=== PATIENT | male | born 1975 | race Caucasian/White ===

== ENCOUNTER 2017-10-30 18:57 | Emergency (ER) | payer OTHER, SELFPAY ==
[~2017-10-30] VITALS: Ht 175.3 cm; Wt 90.7 kg
[~2017-10-30 18:57] MED LIST: ALLO100 PO; CIPR500 PO; HYDACE5 PO; Norco 5-325 Ta1 EACH PO; RXHYDACE PO; Zofran Odt4 MG SL
[2017-10-30 19:30] LABS: Calcium, Ionized (POC) 1.19 mmol/L (1.10-1.46); Chloride (POC) 109 mmol/L (98-108); Creatinine (POC) 0.9 mg/dL (0.8-1.3); Glucose (ISTAT POC) 120 mg/dL (70-99); Potassium (POC) 3.4 mmol/L (3.5-5.5); Sodium (POC) 145 mmol/L (135-148); Total CO2 (POC) 23 mmol/L (21-32)
[2017-10-30 19:48] LABS: BASOPHILS ABSOLUTE AUTO 0.06 K/mm3 (0.00-0.23); BASOPHILS PERCENT AUTO 1 % (0-2); EOSINOPHILS ABSOLUTE AUTO 0.18 K/mm3 (0.00-0.68); EOSINOPHILS PERCENT AUTO 2 % (0-6); Hematocrit 44.7 % (37.0-53.0); Hemoglobin 14.7 g/dL (13.5-17.5); IMMATURE GRAN ABSOLUTE AUTO 0.02 K/mm3 (0.00-0.10); IMMATURE GRAN PERCENT AUTO 0 % (0-1); LYMPHOCYTES PERCENT AUTO 35 % (21-46); MONOCYTES ABSOLUTE AUTO 0.69 K/mm3 (0.16-1.47); MONOCYTES PERCENT AUTO 6 % (4-13); Mean Corpuscular HGB 29.1 pg (26.0-34.0); Mean Corpuscular HGB Conc 32.9 g/dL (31.5-36.5); Mean Corpuscular Volume 89 fL (80-100); Mean Platelet Volume 9.5 fL (9.1-12.4); NEUTROPHILS ABSOLUTE AUTO 6.78 K/mm3 (1.96-9.15); NEUTROPHILS PERCENT AUTO 57 % (41-73); Platelet Count 419 K/mm3 (150-400); RDW Coefficient Variation 13.7 % (11.7-14.2); RDW Standard Deviation 44.5 fL (35.1-46.3); Red Blood Cell Count 5.05 M/mm3 (4.30-5.90); White Blood Cell Count 11.93 K/mm3 (4.00-11.30)
[2017-10-30 20:02] LABS: Alanine Aminotransfer (ALT/SGP 25 U/L (12-78); Albumin, Blood 4.2 g/dL (3.4-5.0); Alk Phos 166 U/L (50-136); Anion Gap 12 mmol/L (6-16); Aspartate Aminotrans (AST/SGOT 13 U/L (12-37); Bilirubin, Total 0.4 mg/dL (0.1-1.0); Blood Urea Nitrogen 14 mg/dL (8-24); Bun/Creatinine Ratio 16.3 (12.0-20.0); CO2, Blood 23 mmol/L (21-32); Calcium, Blood 9.5 mg/dL (8.5-10.1); Chloride, Blood 109 mmol/L (98-108); Creatinine, Blood 0.86 mg/dL (0.60-1.20); Globulin, Blood 4.3 g/dL (2.2-4.0); Glomerular Filtration Rate >60 (60-); Glucose, Blood 116 mg/dL (70-99); Potassium, Blood 3.4 mmol/L (3.5-5.5); Sodium, Blood 144 mmol/L (136-145); Total Protein, Blood 8.5 g/dL (6.4-8.2)
[2017-10-30] MEDS ORDERED: IBUP600 PO (20:43)
[2017-10-30] MEDS ORDERED: Zofran Odt4 MG PO (20:43)
[2017-10-30] MEDS ORDERED: Flomax0.4 MG PO (20:43)
[2017-10-30] MEDS ORDERED: Norco 5-325 Ta1 EACH PO (20:43)
== END 2017-10-30 21:10 | disposition home or self-care (01) ==
LOC: ER 18:57
PROVIDERS: Emergency Medicine
DX: N13.2 Hydronephrosis with renal and ureteral calculous obstruction (principal); Z79.899 Other long term (current) drug therapy
CPT/HCPCS: 36415; 74177; 80047; 80053; 81000; 83605; 85014; 85025; 87040; 93005; 93010; 96374; 96375; 99284; J0780; J1170; J1200; J1885; J2405; J7030; Q9967

== ENCOUNTER → 2022-10-15 | Outpatient (CLI) | payer OTHER, SELFPAY ==
[~2022-10-15] MED LIST changes: +Flomax0.4 MG PO; +IBUP600 PO; +Zofran Odt4 MG PO
== END | disposition home or self-care (01) ==
LOC: LAB SHORT 07:25
DX: Z30.8 Encounter for other contraceptive management (principal)

== ENCOUNTER → 2023-03-02 | Outpatient (CLI) | payer BC | END | disposition home or self-care (01) | LOC: LAB 15:00 → LAB SHORT 15:00 | DX: L08.0 Pyoderma (principal) | CPT/HCPCS: 87070; 87205 ==